=== PATIENT | male | born 1965 | race Caucasian/White ===

== ENCOUNTER 2018-10-22 06:06 | Day surgery (SDC) | payer OTHER ==
[2018-10-22] MEDS ORDERED: LACTATED RINGERS 1,000 ML IV ONE (06:25)
[2018-10-22] MEDS ORDERED: BUPIVACAINE 0.25% PF 10 ML VIAL ONE (07:14)
[2018-10-22] MEDS ORDERED: LIDOCAINE 1% 50 ML MDV ONE ×2 (08:03)
[2018-10-22] MEDS ORDERED: ceFAZolin 1 GM VIAL ONE (08:07)
[2018-10-22] MEDS ORDERED: BUPIVACAINE 0.25% PF 30 ML VIAL SUBQ ONE ×2 (08:12)
[2018-10-22] MEDS ORDERED: LIDOCAINE 1% 50 ML MDV SUBQ ONE ×2 (08:13)
[2018-10-22] MEDS ORDERED: ONDANSETRON 4 MG/2 ML VIAL IVP PRN (08:45)
[2018-10-22] MEDS ORDERED: oxyCODONE 5 MG TABLET PO PRN (08:45)
--- NOTE | 2018-10-22 08:49 | OPERATIVE REPORT ---
Operative Report - Other Other Information/Narrative: Date of Surgery: 22 October 2018 Pre-Op Diagnosis: Left index finger stenosing tenosynovitis Procedure: Left index finger A1 sangeeta release Postop Diagnosis: Same Primary Surgeon: Cameron Chow Secondary Surgeon: Steven Arvizu Complications: None Tourniquet Time: 20 minutes EBL: 1 cc Postoperative Protocol: Active motion as tolerated. No firm gripping for 4 weeks. Indication For Surgery: 52-year-old male with diabetes for the last 7 years whose had 6 months of triggering of his left index finger. He was always able to reduce it. It is been painful and not responsive to conservative measures. The risks, benefits, and alternatives were discussed. Risks include pain, bleeding, infection, damage to nearby structures, numbness, lack of symptom relief, need for further surgery, DVT, PE, stroke, and . Written consent was obtained. The patient was met in the preoperative holding on the day of the procedure. Operative extremity was signed. Consent was verified. They desire to proceed. They were brought to the operating room and placed in the supine position. A well-padded forearm tourniquet was applied. They were prepped and draped in the standard fashion. A surgical timeout was held will be confirmed the patient procedure, identity, allergies, antibiotics, image,s laterality, and finger. All were in agreement we proceeded. A mixture of 1% lidocaine and quarter percent Marcaine without epinephrine was placed in the operative field. Once adequate anesthesia had been obtained a longitudinal incision was made at the level of the A1 pully overlying the affected digit. Blunt dissection was made with scissors down to the tendon sheath and the tissues were spread in line with the tendon and neurovascular structures. 3 blunt retractors were placed and the A1 sangeeta was identified. It was cut sharply with a knife from the distal to the proximal edge. A complete release was confirmed with the use of an elevator. Synovitis and thickening of the tendons were seen underneath it. The patient then flexed the digit and extended it without any catching. The wound was irrigated copiously and closed with horizontal mattress sutures. A sterile dressing was applied. He was transferred to the recovery room in good condition.
[2018-10-22 08:56] VITALS: BP 129/84
== END 2018-10-22 06:07 | disposition home or self-care (01) ==
LOC: SDS 06:06
PROVIDERS: ATTEND Orthopaedic Surgery
PROC: 0LN80ZZ Release Left Hand Tendon, Open Approach (ICD-10-PCS; principal; 2018-10-22 07:30)
DX: M65.322 Trigger finger, left index finger (principal); E11.9 Type 2 diabetes mellitus without complications; I10 Essential (primary) hypertension; Z87.891 Personal history of nicotine dependence
CPT/HCPCS: 26055; J7120

== ENCOUNTER 2021-06-12 15:28 | Outpatient (CLI) | payer OTHER ==
[2021-06-12 16:48] VITALS: BP 140/74
--- NOTE | 2021-06-12 16:48 | SLEEP CARE CONSULTATION ---
Information from patient questionnaire entered by Matilde Palacio MA. I have reviewed and concur with the information entered by Matilde Palacio MA. This document represents the service I personally performed and the decisions made by , Shayla Diez ARNP. History of Present Illness Service Date and Time: 06/12/2021 1528 Reason for Visit: New patient (initial 08/2017) Chief Complaint: reports: Unrefreshed sleep, Snoring, Excessive daytime sleepiness, Fatigue, Frequent awakenings at night Date of Onset: more than a year Usual bedtime: 10 - 11 pm Time it takes to fall asleep: 20 - 30 minutes Snores at night: Yes Observed to quit breathing while asleep: No Sleeps alone due to snoring: No Number of times waking at night: 2-3 times Reasons for waking at night: reports: Snoring (once that he remembers), Gasping for air (couple of times), Pain, Bathroom, Other (unknown reason noise) Toss, Turn, or Twitch while sleeping: Yes Recalls having dreams: Yes Usually gets out of bed at: 0600 Feels refreshed in the morning: No Morning headache: Yes (1 time a week, no meds, goes away quickly in morning) Sleepy or fatigued during the day: Yes Ever fallen asleep while driving: No (no drowsy driving) Takes day naps: No Dreams during day naps: No Prior sleep studies: No Additional HPI information: I had the pleasure of seeing RICARDO MOCTEZUMA today regarding the possibility of him having a sleep disorder. His current complaints are excessive daytime sleepiness, fatigue, frequent night awakenings and unrefreshed sleep. He states he doesn't usually sleep all night and is tired all the time. His has told him that he snores at night but no pauses in breathing at night. He does not wake up feeling rested. He is tired throughout the day but just keeps busy and is fine. He does not take naps during the day. He wakes up with a headache that is mild about once a week that will go away on its own quickly in the morning. He does not usually have to take analgesic medication. He has a history of hypertension and diabetes. - Parasomnia Symptoms Ever been unable to move upon waking from sleep: No Walks in sleep: No Talks in sleep: No Ever acted out dreams in sleep: No Ever felt weak in the knees when startled or emotional: No Bothered by creepy, crawly, restless sensations in legs: No Problems with memory or concentration: No Subjective Initial [place] Sleepiness Scale score: 5 (in 2020) Past Medical History Past Medical History: reports: Hypertension, Diabetes Social History The patient's occupation is a [employer]. Patient is and lives in [place]. Have you smoked in the past 12 months: No Cigarettes per day (20/pack): 3 Years of smokin Quit date: 1981 Smoking Pack Years: 0.2 Alcohol use: Yes Alcohol amount and frequency: 3-4/ 2/3 x a week Caffeine use: Yes Caffeine amount and frequency: 2 cups daily Family History Family history of sleep disordered breathing: No Allergies and Home Medications Drug allergies reviewed: Yes (simvastatin) Home medication list reviewed: Yes Allergy and home medication list: Metformin Jardiance Insulin Aspirin Atorvastatin Lisinopril Multivitamin Review of Systems Cardiovascular: reports: high blood pressure Gastrointestinal: denies: heartburn Urinary: reports: frequency Neurological: reports: headaches Psychiatric: denies: anxiety, depression Ear/Nose/Throat: reports: tonsillectomy, wisdom teeth removed. denies: injury to nose Endocrine: reports: sluggishness, increased urination Musculoskeletal: reports: joint pain, neck pain, back pain Immunologic: denies: allergies to food or environment Physical Exam Vital signs obtained and entered by: Pia GONZALEZMA Blood Pressure: 140/74 (left) Cuff size: wrist Heart Rate: 64 O2 Saturation: 98 (with mask) Height: 5 ft 8 in Weight: 181 lb (with boots) Body Mass Index: 27.5 BMI Classification: Overweight Neck circumference: 16 (inches) Mouth and throat: narrow oropharynx Soft palate: long Hard palate: normal Uvula: normal Uvula visualization: 50% Mallampati Class II Tongue: enlarged in size with teeth kwon on lateral edges Tonsils: absent bilaterally Neck: normal w/o lymphadenopathy or thyromegaly Heart: regular rate and rhythm Lungs: clear bilaterally Impression and Plan 1. Suspected Obstructive Sleep Apnea-Hypopnea Syndrome, as suggested by a history of loud and irregular snoring, gasping or choking in sleep, morning headache, frequent awakening during the night, unrefreshed sleep, and excessive daytime sleepiness. Narrow oropharynx and obesity are common predisposing factors for obstructive sleep apnea-hypopnea syndrome. I recommend proceeding to polysomnography to confirm the diagnosis and to assess severity. If the patient has significant sleep disordered breathing, a manual CPAP titration study will also be performed to find the optimal treatment pressure. I informed the patient of what the sleep studies involve and after some discussion, obtained agreement to proceed. The pathophysiology of obstructive sleep apnea-hypopnea syndrome was discussed with the patient and health risks of cardiovascular and cerebrovascular disease if not treated. AAS brochure for obstructive sleep apnea-hypopnea syndrome given and reviewed. Risks of drowsy driving discussed in detail and patient advised to avoid long distance driving and to crop puller at the first sign of drowsiness. Patient agreed to plan. * Schedule polysomnography +- manual CPAP titration study and return in 1-2 weeks after the study to discuss result and initiate therapy. * Avoid long distance driving or driving when feeling sleepy. * Avoid alcohol, sedative and muscle relaxant around bedtime. * Attempt to lose weight. * Review instructions provided by trained office staff on how to prepare for the sleep study. * Return for follow-up after sleep study completed. Counseling Topics: Weight loss health impact Visit Type: In Office (08/2017) Time Spent with Patient (minutes): 30 Provider Statement: I spent 100% of the Face to Face Visit with the patient with greater than 50% spent counseling the patient and coordination of care.
== END 2021-06-12 15:29 | disposition home or self-care (01) ==
LOC: SC 15:28
PROVIDERS: ATTEND Nurse Practitioner Family
DX: R06.83 Snoring (principal); R51.9 Headache, unspecified; G47.8 Other sleep disorders; G47.10 Hypersomnia, unspecified
CPT/HCPCS: 99203; 99212

== ENCOUNTER 2021-07-16 14:45 | Outpatient (CLI) | payer OTHER | END 2021-07-16 14:46 | disposition home or self-care (01) | LOC: SC 14:45 | PROVIDERS: ATTEND Nurse Practitioner Family | DX: G47.33 Obstructive sleep apnea (adult) (pediatric) (principal); R09.02 Hypoxemia; I10 Essential (primary) hypertension; E11.9 Type 2 diabetes mellitus without complications | CPT/HCPCS: 95806 ==

== ENCOUNTER 2021-08-22 16:07 | Outpatient (CLI) | payer OTHER ==
[2021-08-22 16:45] VITALS: BP 135/77
--- NOTE | 2021-08-22 16:45 | SLEEP CARE CONSULTATION ---
Information from patient questionnaire entered by Matilde Palacio MA. I have reviewed and concur with the information entered by Matilde Palacio MA. This document represents the service I personally performed and the decisions made by , Shayla Diez ARNP. History of Present Illness Service Date and Time: 08/22/2021 1607 Initial [place] Sleepiness Scale score: 5 (in 2020) Current [place] Sleepiness Scale score: 7 (2021) Additional HPI information: RICARDO MOCTEZUMA returns for follow up and results of the recently performed home sleep study. I explained the pathophysiology behind obstructive sleep apnea. We then spent quite a bit of time discussing different treatment options. For mild obstructive sleep apnea, surgery and oral appliance are alternatives to nasal CPAP therapy but in moderate or severe cases, nasal CPAP is the most effective and reliable treatment. I reviewed the impact of weight changes on sleep apnea and strongly recommended losing weight. After some discussion, the patient opted to go with the nasal CPAP therapy. Nasal autoCPAP set at 4-15 cmH20 will be ordered with rationale explained. A manual titration study will be ordered if unable to find optimal pressure with office adjustments. I explained how CPAP machine works and what to expect when using the machine. Using CPAP every night in order to get used to it was emphasized. Patient advised to put CPAP mask on before getting into bed so as not to fall asleep without CPAP. To assist acclimation to CPAP use, it could also be used for a short time during day while reading or watching TV. The patient was instructed to call the CPAP supplier to discuss any mechanical problem that may occur. If the mask given is uncomfortable or is difficult to keep on through the night even with adjustment, contact the CPAP supplier as many will replace with another mask style if notified before 30 days. If snoring or perceives is not getting enough air or too much air from the machine, notify this office. AASM patient education PAP tips and Non Pap treatment pamphlets reviewed and given to patient. Patient counseled not drink alcohol less than 4 hours before bedtime as it can increase snoring and apnea. Patient was cautioned about risks of drowsy driving until sleepiness symptoms resolve. Sleep Study - Results Prior sleep studies: No Polysomnography/Home Sleep Study results: Physician Impression: The quality of the study is good. The length of the study is adequate (> 240 minutes). Please also see the tabulated and graphic data. 1. Obstructive Sleep Apnea-Hypopnea (ICD-10 G47.33), mild, with an AHI of 13.9/hr and amada SaO2 of 79%. During the study, the patient had 16 apneas (16 obstructive, 0 central, 0 mixed) and 76 hypopneas. The longest episode lasted 81.0 seconds. The respiratory events occurred more frequently during non-supine sleep (supine AHI was 13.7 and non-supine, 24.00). 2. Hypoxemia (ICD-10 R09.02), moderate, with the lowest oxygen saturation of 79 % and 7.9 minutes with SaO2 under 90%. Baseline oxygen saturation was normal (Average oxygen saturation was 92%). Allergies and Home Medications Known drug allergies: No Drug allergies reviewed: Yes Home medication list reviewed: Yes (no changes) Review of Systems Review of systems same as previous: Yes (no changes) Physical Exam Vital signs obtained and entered by: DEVIN LUCAS Blood Pressure: 135/77 (RIGHT, PULSE 81) Heart Rate: 83 O2 Saturation: 97 (WITH PAPER MASK) Height: 5 ft 8 in Weight: 185 lb (W/O CLOTHES) Body Mass Index: 28.1 BMI Classification: Overweight Impression and Plan 1. Obstructive Sleep Apnea-Hypopnea Syndrome, mild, with lowest oxygen saturation of 79%. Obviously this is the cause of the patients symptoms of unrefreshed sleep, and excessive daytime sleepiness. Positive pressure therapy could benefit hypertension and diabetes. As mentioned above, the patient will be started on nasal autoCPAP therapy with pressure set at 4-15 cmH2O. Compliance guidelines also reviewed. A copy of compliance guidelines will be given for reference at check out. 2. Hypoxemia, moderate, with the lowest oxygen saturation of 79 % and 7.9 minutes with SaO2 under 90%. His baseline oxygen saturation was normal with an average oxygen saturation of 92%. * Nasal auto CPAP therapy, pressure at 4-15 cm H2O. * Attempt to lose weight. * Avoid alcohol consumption near bedtime. * Avoid non-supine sleep until using CPAP. * The patient is again cautioned about driving until sleepiness completely resolves. * Return one month after CPAP obtained. I will assess response to therapy and compliance at that time. Counseling Topics: Weight loss health impact Visit Type: In Office Time Spent with Patient (minutes): 22 Provider Statement: I spent 100% of the Face to Face Visit with the patient with greater than 50% spent counseling the patient and coordination of care.
== END 2021-08-22 16:08 | disposition home or self-care (01) ==
LOC: SC 16:07
PROVIDERS: ATTEND Nurse Practitioner Family
DX: G47.33 Obstructive sleep apnea (adult) (pediatric) (principal)
CPT/HCPCS: 99212; 99213

== ENCOUNTER 2021-11-27 10:27 | Outpatient (CLI) | payer OTHER ==
--- NOTE | 2021-11-27 15:28 | MRI Report ---
PROCEDURE: Cervical Spine W/O INDICATIONS: PARESTHESIA OF SKIN TECHNIQUE: Noncontrast sagittal T1 spin echo and T2 fast spin echo, sagittal STIR, foraminal oblique sagittal T2 fast spin echo, and axial gradient echo or T2 fast spin echo through the cervical spine. COMPARISON: None. FINDINGS: Image quality: Degraded by patient motion artifact. Alignment and Curvature: There is trace, approximately 2 mm of C4 and C5 retrolisthesis. There is st raightening normal upper cervical spine curvature. Bone Marrow: Marrow demonstrates normal overall signal. Spinal Cord: Visualized spinal cord has normal size and signal. No cerebellar tonsillar herniation. Paraspinous Soft Tissues: No paravertebral masses. Prevertebral soft tissues are normal in thicknes s. C2-C3: Loss of disc signal. No central stenosis. No neural foraminal narrowing. No neural compressio n. C3-C4: Loss of disc signal and height. Moderate, diffuse disc bulge. Severe narrowing of the centra l canal with mild compression of the cervical spinal cord. Mild bilateral facet hypertrophy. Mild maurisio ateral uncovertebral joint hypertrophy. Mild right and moderate left neural foraminal narrowing. C4-C5: Loss of disc signal and height. Moderate, diffuse disc bulge. Small central/right central dis c protrusion. Severe narrowing of the central canal with compression of the cervical spinal cord. Mil d bilateral facet hypertrophy. Mild bilateral uncovertebral joint hypertrophy. Severe right and moder ate left neural foraminal narrowing with compression of the exiting right C5 nerve root. C5-C6: Loss of disc signal. Moderate, diffuse disc bulge. Severe narrowing of the central canal with mild compression of the cervical spinal cord. Mild bilateral facet hypertrophy. Mild right uncoverte bral joint hypertrophy. Moderate right and mild left neural foraminal narrowing. C6-C7: Loss of disc signal. Mild, diffuse disc bulge. Mild narrowing of the central canal. Mild bila teral facet hypertrophy. Mild right uncovertebral joint hypertrophy. Mild right neural foraminal narr owing. No neural compression. C7-T1: Loss of disc signal. No central stenosis. No neuroforaminal narrowing. No neural compression. IMPRESSION: 1. Multilevel degenerative disc disease. 2. Multilevel facet and uncovertebral arthropathy. 3. Severe C3-C4, C4-C5 and C5-C6 central canal narrowing with compression of the cervical spinal cord . 4. Severe right C4-C5 neural foraminal narrowing with compression of the exiting right C5 nerve root. Reviewed by: Shasha Cárdenas MD, PhD on 11/27/2021 3:26 PM PDT Approved by: Shasha Cárdenas MD, PhD on 11/27/2021 3:26 PM PDT Station ID: [id number]
== END 2021-11-27 10:28 | disposition home or self-care (01) ==
LOC: DI 10:27
PROVIDERS: ATTEND Internal Medicine
DX: M47.812 Spondylosis without myelopathy or radiculopathy, cervical region (principal); M48.02 Spinal stenosis, cervical region; M50.31 Other cervical disc degeneration, high cervical region

== ENCOUNTER 2023-05-22 13:53 | Outpatient (CLI) | payer OTHER ==
--- NOTE | 2023-05-22 19:13 | MRI Report ---
PROCEDURE: CERVICAL SPINE WO INDICATIONS: CERVICAL STENOSIS TECHNIQUE: Noncontrast sagittal T1 spin echo and T2 fast spin echo, sagittal STIR, foraminal oblique sagittal T2 fast spin echo, and axial gradient echo or T2 fast spin echo through the cervical spine. COMPARISON: None. FINDINGS: Image quality: Motion artifact is noted. Alignment and Curvature: There is focal reversal of the normal cervical lordosis at the C3-C4 level. There is minimal retrolisthesis seen at C4-C5 and C5-C6.. Bone Marrow: Marrow demonstrates normal overall signal. Spinal Cord: Visualized spinal cord has normal size and signal. No cerebellar tonsillar herniation. Paraspinous Soft Tissues: No paravertebral masses. Prevertebral soft tissues are normal in thicknes s. C2-C3: No significant abnormality is seen. C3-C4: Moderate loss of disc height and signal are seen. Moderate disc osteophyte complex is seen, with a central/left disc osteophyte protrusion. Mild facet hypertrophy is seen. There is moderate to severe left-sided and moderate right-sided neuroforaminal narrowing. At least moderate central can al narrowing is seen, with associated mass effect upon the ventral spinal cord. These imaging findin gs are similar to the images of the prior examination. C4-C5: Moderate loss of disc height and signal are seen. Moderate disc osteophyte complex is seen, w hich is eccentric to the right. There is a central disc osteophyte protrusion. Moderate facet hypert rophy is seen. There is moderate to severe bilateral neuroforaminal narrowing seen. Moderate centr al canal narrowing is seen. Associated mass effect is seen upon the ventral spinal cord. These imag ing findings are similar to the images of the prior examination. C5-C6: Mild to moderate loss of disc height and disc signal can be seen. Moderate disc osteophyte co mplex is seen, with a central disc osteophyte extrusion, with inferior migration of the disc material . Mild facet hypertrophy is seen. There is moderate to severe bilateral neuroforaminal narrowing see n. At least moderate central canal narrowing is seen, with associated ventral cord flattening. These imaging findings are similar to the images of the prior examination. C6-C7: Mild loss of disc height and disc signal are seen. Moderate disc osteophyte complex is seen. There is a central/right disc osteophyte protrusion seen. Moderate facet hypertrophy is seen. Moder ate to severe bilateral neural foraminal narrowing can be seen. Moderate central canal narrowing is seen. Associated mass effect is seen upon the ventral spinal cord. These imaging findings are sim ilar to the images of the prior examination. C7-T1: No significant abnormality is seen. IMPRESSION: Multiple levels of cervical spine degenerative change are seen, which are similar to the prior MRI im ages. Reviewed by: Renard Vaughn MD on 05/22/2023 6:12 PM AKDT Approved by: Renard Vaughn MD on 05/22/2023 6:12 PM AKDT Station ID: [id number]
== END 2023-05-22 13:54 | disposition home or self-care (01) ==
LOC: DI 13:53
PROVIDERS: ATTEND Nurse Practitioner Adult Health
DX: M50.31 Other cervical disc degeneration, high cervical region (principal); M48.02 Spinal stenosis, cervical region; M47.812 Spondylosis without myelopathy or radiculopathy, cervical region

== ENCOUNTER 2024-01-22 06:18 | Day surgery (SDC) | payer OTHER ==
[~2024-01-22 06:18] MED LIST: LIDOCAINE-MPF 2% 5 ML VIAL ONE; PROPOFOL 200 MG/20 ML VIAL IVP ONE; PROPOFOL 500 MG/50 ML 500 MG/50 ML VIAL ONE
[2024-01-22] MEDS: LACTATED RINGERS 1,000 ML IV ONE ×2 (06:29→07:53)
--- NOTE | 2024-01-22 06:57 | ANESTHESIA ---
Pre-Anesthesia VS, & Labs - Diagnosis Screening - Procedure Colonoscopy Vital Signs: Temp Pulse Resp BP Pulse Ox O2 Flow Rate 36.1 C L 79 16 130/82 H 99 01/22/24 06:36 01/22/24 06:36 01/22/24 06:36 01/22/24 06:36 01/22/24 06:36 Height: 5 ft 8 in Weight (kg): 81.6 kg Body Mass Index: 27.3 BMI Classification: Overweight - Lab Results Current Lab Results: Laboratory Tests 01/22/24 06:45: POC Whole Bld Glucose 125 H Home Medications and Allergies Aspirin [Aspirin EC] 81 mg PO DAILY 10/18/18 Atorvastatin [Lipitor] 5 mg PO DAILY 10/18/18 Insulin Glargine [Lantus Solostar] 15 unit QPM 10/18/18 Insulin Glargine [Lantus Solostar] 40 unit QDBREAKFAST 10/18/18 hydroCHLOROthiazide [Hydrochlorothiazide] 12.5 mg PO DAILY 10/18/18 lisinopriL [Lisinopril] 20 mg PO DAILY 10/18/18 metFORMIN [Glucophage] 1,000 mg PO BIDWM 10/18/18 Allergies/Adverse Reactions: Allergies Allergy/AdvReac Type Severity Reaction Status Date / Time simvastatin AdvReac Cramps Verified 01/21/24 12:13 Anes History & Medical History - Anesthetic History Family history of Anesthesia Complications: Denies Family history of Malignant Hyperthermia: Denies - Medical History Cardiovascular: reports: Hypertension, High cholesterol Pulmonary: reports: None, Sleep apnea Gastrointestinal: reports: None Urinary: reports: None Musculoskeletal: reports: None, Other Endocrine/Autoimmune: reports: Type 2 diabetes Skin: reports: None Smoking Status: Never smoker Psychosocial: reports: No issues indicated History of Cancer?: No - Surgical History General: reports: Colonoscopy Orthopedic: reports: Arthroscopic surgery Exam General: Alert, Oriented x3, Cooperative Dental: WNL Mouth Openin Fingerbreadth Neck Mobility: Normal Mallampati classification: II Thyromental Distance: 4-6 cm Respiratory: Lungs clear Cardiovascular: Regular rate Mental/Cognitive Status: Alert/Oriented X3, Normal for patient Cognitive Status: Within normal limits (Pt stated last dose of insulin was yesterday morning.) Plan Anesthesia Type: MAC Consent for Procedure(s) Verified and Reviewed: Yes Code Status: Attempt Resuscitation ASA classification: 2-Mild systemic disease Is this case an emergency?: No
[2024-01-22 08:20] VITALS: BP 116/90; O2SAT 98
--- NOTE | 2024-01-22 08:28 | ANESTHESIA POST OP EVALUATION ---
Anesthesia Post Eval - Post Anesthesia Eval Vitals: Last Vital Signs Temp 36.3 C L 01/22/24 07:53 Pulse 73 01/22/24 08:11 Resp 13 01/22/24 08:11 BP 116/90 H 01/22/24 08:11 Pulse Ox 98 01/22/24 08:11 O2 Flow Rate CV Function Including HR & BP: Stable Pain Control: Satisfactory Nausea & Vomiting: Negative Mental Status: Baseline Respiratory Status: Airway Patent Hydration Status: Satisfactory Anesthesia Complications: None
== END 2024-01-22 06:19 | disposition home or self-care (01) ==
LOC: SDS 06:18
PROVIDERS: ATTEND Surgery
DX: Z12.11 Encounter for screening for malignant neoplasm of colon (principal); K57.30 Diverticulosis of large intestine without perforation or abscess without bleeding; E11.9 Type 2 diabetes mellitus without complications; Z79.4 Long term (current) use of insulin; Z79.84 Long term (current) use of oral hypoglycemic drugs; G47.30 Sleep apnea, unspecified; I10 Essential (primary) hypertension
CPT/HCPCS: 45378; J7120